=== PATIENT | male | born 1970 | race Caucasian/White ===

== ENCOUNTER 2025-08-01 10:29 | Inpatient (IN) | payer SELFPAY ==
[~2025-08-01] VITALS: Ht 175.3 cm; Wt 73.8 kg
--- NOTE | 2025-08-01 10:36 | ELECTROCARDIOGRAPH REPORT ---
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 Linden Marques Measurements Intervals [place] Rate: 142 P: 89 MS: 147 QRS: 101 QRSD: 87 T: -51 QT: 284 QTc: 437 Interpretive Statements Sinus tachycardia Ventricular premature complex Right axis deviation Borderline repolarization abnormality Electronically Signed On 08-03-2025 21:44:[address] Linden Marques Please click the below link to view image of tracing.
--- NOTE | 2025-08-01 10:55 | RADIOLOGY REPORT ---
CHEST RADIOGRAPH Indication: CP Technique: Single frontal view of the chest was obtained COMPARISON: None FINDINGS: Lines and Tubes: None Lungs: Clear Pleura: No effusion. No pneumothorax. Cardiomediastinal contours: Unremarkable Bones: Unremarkable IMPRESSION: No acute disease.
[2025-08-01 11:08] LABS: MEAN PLATELET VOLUME 8.8 FL (7.4-10.4)
--- NOTE | 2025-08-01 11:16 | Physician Documentation ---
Addendum CHIEF COMPLAINT/HPI: The patient is a 54-year-old male with no significant past medical history who arrives here with shortness of breath on exertion and tachycardia. On Thursday, four days ago, he developed chills, nausea, vomiting, diarrhea and aches and pains. He reports that he has very little to eat since then. Thursday some of his symptoms had improved but he had a severe headache. Thursday he felt like he was beginning to get better. Beginning yesterday he developed shortness of breath with even mild exertion. REVIEW OF SYSTEMS: Constitutional: Denies chills, fatigue, fever, weight gain or weight loss. HEENT: Denies hearing loss, sinus pressure or visual changes. Respiratory: Shortness of breath with the exertion Cardiovascular: Denies chest pain, pain while walking (claudication), edema. Patient has palpitations. Gastrointestinal: Denies abdominal pain, blood in stool, constipation, diarrhea, heartburn, loss of appetite, nausea or vomiting. Genitourinary: Denies painful urination (dysuria), excessive amount of urine (polyuria) or urinary frequency. Metabolic/Endocrine: Denies cold intolerance, heat intolerance, excessive thirst (polydipsia) or excessive hunger (polyphagia). Neurological: Denies dizziness, extremity numbness, extremity weakness, headaches, seizures or tremors. Psychiatric: Denies anxiety or depression. Integumentary: Denies breast discharge, breast lump, hives, mole change(s), rash or skin lesion. Musculoskeletal: Denies back pain, joint pain, joint swelling or neck pain. Hematologic: Denies easily bleeding, easily bruises, lymphedema or issues with blood clots. Immunologic: Denies food allergies or seasonal allergies. PHYSICAL EXAMINATION: Vitals and nursing note reviewed. Constitutional: General: Patient is awake, alert, oriented x 4 in no acute distress and well appearing. Speech is clear and lucid. Appearance: Normal appearance. Patient is not ill-appearing, toxic-appearing or diaphoretic. HENT: Head: Normocephalic and atraumatic. Mouth/Throat: Mouth: Mucous membranes are moist. Pharynx: Oropharynx is clear. Eyes: General: No scleral icterus. Extraocular Movements: Extraocular movements intact. Pupils: Pupils are equal, round, and reactive to light. Neck: Supple, no Kernig or Brudzinski sign. Cardiovascular: Rate and Rhythm: Tachycardic. Heart sounds: No murmur heard. Pulmonary: Effort: No respiratory distress. Breath sounds: No wheezing, rhonchi or rales. Abdominal: General: There is no distension. Palpations: There is no fluid wave, hepatomegaly or mass. Tenderness: There is no abdominal tenderness. There is no guarding. Musculoskeletal: General: No swelling or deformity. Skin: Coloration: Skin is not jaundiced. Findings: No erythema or rash. Neurological: Mental Status: Patient is alert. MEDICAL DECISION MAKING: This 54-year-old male presented with dyspnea on exertion, tachycardia after onset of viral syndrome Thursday, four days ago. He is COVID positive. He is dehydrated and hypokalemic. He has LUCIAN. I am hydrating him and will get him admitted. Departure Disposition: ADMITTED INPATIENT Admitted to Inpatient Unit: to hospitalist Admission Level of Care: Neuro with Tele Impression: Primary Impression: COVID Additional Impressions: Dyspnea on exertion Acute kidney injury Hypokalemia Condition: Fair LUTHER DUBON MD Aug 01, 2025 11:16
[2025-08-01 11:31] LABS: CREATININE 1.24 MG/DL (0.60-1.10); PRO BRAIN NATRIURETIC PEPTIDE 35 PG/ML (0-125); TOTAL CARBON DIOXIDE 18.7 MMOL/L (24-32); eCRCL 67 ML/MIN; eGFR 60 ML/MIN
[2025-08-01 11:55] LABS: ETHANOL < 10 MG/DL (<10)
[2025-08-01 12:06] LABS: RED CELL DISTRIBUTION WIDTH 13.8 % (11.5-14.5)
[2025-08-01] MEDS: potassium Cl 20 mEq SR tablet PO STA (12:34)
[2025-08-01] MEDS: normal saline 1000ml 1,000 ML IV ONE (12:35)
[2025-08-01] MEDS: potassium CL 10mEq/100ml bag 100 ML IV SCH (12:37)
[2025-08-01] MEDS: magnesium sulf-water 2g/50mL 50 ML IV ONE (12:39)
[2025-08-01 12:49] LABS: LEUKOCYTE ESTERASE ,URINE NEGATIVE (Neg); NITRITES, URINE NEGATIVE (Neg); OCCULT BLOOD,URINE NEGATIVE (Neg)
[2025-08-01] MEDS ORDERED: potassium Cl 40MEQ/1/2NS 520ml 520 ML IV PRN (12:50)
[2025-08-01] MEDS ORDERED: magnesium sulf-water 2g/50mL 50 ML IV PRN (12:50)
[2025-08-01] MEDS ORDERED: magnesium hydroxide 30ml (MOM) UD suspension PO PRN (12:50)
[2025-08-01] MEDS ORDERED: HYDROcodone/acetaminophen 10/325mg tab PO PRN (12:50)
[2025-08-01] MEDS ORDERED: ondansetron/PF 4mg/2ml inj IV PRN (12:50)
[2025-08-01] MEDS ORDERED: potassium Cl 20 mEq SR tablet PO PRN ×2 (12:50)
[2025-08-01] MEDS ORDERED: HYDROcodone/acetaminophen 5mg/325mg tablet PO PRN (12:50)
[2025-08-01] MEDS ORDERED: magnesium sulf-water 4G/100mL 100 ML IV PRN (12:50)
[2025-08-01] MEDS ORDERED: dexamethasone inj 6 MG in dextrose 5%-water 50ml 50 ML IV SCH (12:56)
[2025-08-01 12:57] LABS: UA COLLECTION TYPE NON-SPECIFIED
[2025-08-01 13:14] LABS: URINE AMPHETAMINE SCREEN NEGATIVE (Neg); URINE BARBITUATE SCREEN NEGATIVE (Neg); URINE BENZODIAZEPINES SCREEN NEGATIVE (Neg); URINE CANNABINOID SCREEN POSITIVE (Neg); URINE COCAINE SCREEN NEGATIVE (Neg); URINE METHADONE SCREEN NEGATIVE (Neg); URINE OPIATE SCREEN NEGATIVE (Neg); URINE PHENCYCLIDINE SCREEN NEGATIVE (Neg)
[2025-08-01 13:15] LABS: LYMPHOCYTES % (MANUAL) 26.0 % (21-51); METAMYLEOCYTES% (MANUAL) 1.0 % (0-0); MONOCYTES % (MANUAL) 16.0 % (2-12); NEUTROPHILS % (MANUAL) 57.0 % (42-75)
[2025-08-01 13:16] LABS: PLATELET ESTIMATE NORMAL
[2025-08-01] MEDS ORDERED: dexamethasone inj 6 MG in normal saline 50ml IV soln 50 ML IV SCH (13:26)
[2025-08-01] MEDS: sodium bicarbonate (8.4%) inj. 100 MEQ in dextrose 5%-water 1,000 ML IV SCH (13:30)
[2025-08-01] MEDS: dexamethasone inj 6 MG in normal saline 50ml IV soln 50 ML IV SCH (13:57)
[2025-08-01 15:48] VITALS: BP 135/88; PULSE 87; RESP 18; TEMP 99.1; O2SAT 99
[2025-08-01 16:05] VITALS: PULSE 68; RESP 16; O2SAT 99
--- NOTE | 2025-08-01 16:17 | HISTORY AND PHYSICAL ---
History & Physical Providers to CC ~ History of Present Illness Reason for Admit\Complaint: Shortness of the breath and significan Sinus tachycardia with activity History of Present Illness This is a 54-year-old male who four days ago noticed he had via viral-like symptoms including chills, nausea, vomiting, diarrhea and body aches. The nausea and vomiting resolved after one day however the patient has a persistent headache and body aches the following day two days ago he felt better however the patient developed shortness of breath x1 day. On arrival to the ED the patient is heart rate went up into in the 120s with activity and the patient became tachypneic and short of breath the patient is COVID positive. Allergies: Coded Allergies: No Known Allergies (Unverified , 07/03/11) Home Medications Home Medications Active No Active Prescriptions or Reported Medications Past Medical History Past Medical History No chronic health conditions Past Surgical History Surgical History Comment Appendectomy Family History Family History: Patient reports no known family medical history. Past Social History Social History Comment Chews tobacco, has been sober for a years, smokes marijuana. Full code status ROS ROS Except for positives in the HPI the rest of the 14 point review systems is negative Exam Vitals: Vital Signs Date Time Temp Pulse Resp B/P (MAP) Pulse Ox O2 Delivery O2 Flow Rate FiO2 08/01/25 15:48 99.1 87 18 135/88 (104) 99 Room Air 08/01/25 14:42 0 General: Gen. No acute distress alert and oriented 4 Lungs clear to ascultation bilaterally, no wheezes rales or rhonchi appreciated Heart normal sinus rhythm no murmurs rubs or clicks noted Abdomen soft nontender bowel sounds are normoactive Lower extremities no clubbing cyanosis, nor edema appreciated bilaterally Diagnostic Data Last Recorded Lab Results: 08/01/25 1052 08/01/25 1052 Diagnostic Data: Laboratory Tests Test 08/01/25 10:52 D-Dimer 0.30 MG/L FEU (0-0.50) D-Dimer Comment Advance Care Planning Advanced Care plannin - 30 Minutes Problems: (1) COVID Status: Acute Additional Plan # COVID with the associated shortness of breath and sinus tachycardia with activity Daily CRP and D-dimer Daily IV dexamethasone # hypokalemia On potassium replacement protocol # metabolic acidosis Bicarb drip # kidney disease Eval for chronic kidney disease versus LUCIAN Daily basic metabolic panel # DVT prophylaxis SCDs SQ Lovenox I spent a total of 18 minutes on reviewing various resuscitative measures/ ACP with the patient at the time of admission. The patient has decided on full code status Date of Service: Aug 01, 2025 Billing Provider: LENNY SOLIMAN DO Common Visit Codes: [id number] INP/OBS CARE (HIGH) Secondary Visit Codes: [id number] CARE PLAN 30 MINUTES LENNY SOLIMAN DO Aug 01, 2025 16:17
[2025-08-01 16:21] VITALS: RESP 18; O2SAT 99
[2025-08-01 18:00] VITALS: BP 142/85; PULSE 84; RESP 15; TEMP 98.1; O2SAT 96
[2025-08-01] MEDS: K and/or MAG REPLACEMENT MC SCH (20:00)
[2025-08-01 20:30] VITALS: RESP 16
[2025-08-01] MEDS: docusate sod 100mg capsule PO SCH (20:53)
[2025-08-01] MEDS: mag hydrox/Alum hydrox/simeth 30ml oral suspension PO PRN (20:54)
[2025-08-01] MEDS: enoxaparin 40mg/0.4ml syringe SQ SCH (20:54)
[2025-08-01 22:00] VITALS: BP 113/84; PULSE 80; RESP 18; TEMP 98.2; O2SAT 98
[2025-08-02 05:04] LABS: MEAN PLATELET VOLUME 9.0 FL (7.4-10.4); RED CELL DISTRIBUTION WIDTH 13.6 % (11.5-14.5)
[2025-08-02 05:14] LABS: CREATININE 0.97 MG/DL (0.60-1.10); TOTAL CARBON DIOXIDE 28.0 MMOL/L (24-32); eCRCL 85 ML/MIN; eGFR 80 ML/MIN
[2025-08-02 07:08] VITALS: BP 111/76; PULSE 71; RESP 13; TEMP 98; O2SAT 97
[2025-08-02 07:49] VITALS: RESP 14; O2SAT 97
[2025-08-02 10:26] VITALS: BP 112/80; PULSE 73; RESP 18; TEMP 98; O2SAT 99
--- NOTE | 2025-08-02 11:19 | DISCHARGE SUMMARY ---
Discharge Summary Providers to CC ~ Discharge Summary Admission Diagnosis: COVID 19 Hospital Course DATE OF ADMISSION: 08/01/2025 DATE OF DISCHARGE: 08/02/2025 Discharge Diagnosis\Comment: COVID-19 infection Dehydration Operations\Procedures: None Consultants: None Complications: None Condition on DC: Stable Medication Profile: No Active Prescriptions or Reported Meds Discharge Summary: Reason for admission: 54 years old male started having vital flu-like symptoms including chills, nausea, vomiting, diarrhea and body aches. Nausea and vomiting resolved after one day however patient continued to have headaches and body aches and developed shortness of breaths. Patient stated he could barely walk 15 ft without getting short of breath. Patient was noted to be tachycardic in the 120s and presented to the ER. # COVID 19 infection: Patient is not requiring any oxygen and reports significant improvement after hydration # dehydration: Suggested by hemoconcentration and elevated creatinine. Patient came in with a hemoglobin of 19.3 which is now down to 16.4 after IV hydration #LUCIAN: Resolved. Patient presented with a creatinine 1.24 which is now down to 0.97 after hydration # Hypokalemia: Replaced per protocol Discharge exam: Examined the patient on the day of discharge. Awake alert cooperative in no acute distress. Patient reports marked improvement HEENT normocephalic atraumatic extraocular movements are intact Neck supple, no JVD Chest: Clear to auscultation, no wheezes crackles rhonchi Heart: Regular rate rhythm, no murmur or gallop rub Abdomen is soft nontender no organomegaly Extremities no cyanosis clubbing or edema Neuro exam nonfocal Disposition: Home. *Problems/Diagnosis: (1) COVID Status: Acute Total Time Spent on D/C: Up to 30 Minutes Date of Service: Aug 02, 2025 Billing Provider: GILA KLEIN MD Common Visit Codes: 87061-DKF/OBS DISCH DAY <30MIN GILA KLEIN MD Aug 02, 2025 11:18
== END 2025-08-02 11:20 | disposition home or self-care (01) | DRG 178 ==
LOC: ER 10:29 → ED HOLD 12:52 → SUR 3N 15:29
PROVIDERS: ADMIT Family Medicine; ATTEND Family Medicine
DX: U07.1 COVID-19 (principal); E87.20 Acidosis, unspecified; N17.9 Acute kidney failure, unspecified; E86.0 Dehydration; E87.6 Hypokalemia; Z72.0 Tobacco use
CPT/HCPCS: 36415; 71045; 80048; 80053; 80305; 80320; 81003; 83605; 83735; 83880; 84145; 84484; 85007; 85025; 85379; 86140; 87081; 87811; 93005; 94760; 96365; 96367; 96372; 99285; G0378; J1100; J1650; J3480; J3490; J7030; J7070

== ENCOUNTER 2025-08-06 08:42 | Inpatient (IN) | payer SELFPAY ==
[~2025-08-06] VITALS: Ht 172.7 cm; Wt 78.4 kg
--- NOTE | 2025-08-06 09:06 | Physician Documentation ---
History of Present Illness ~ Chief Complaint: Rapid Heartbeat Stated Complaint: RAPID HEART RATE Time Seen by MD: 08:59 HPI 54-year-old male, presenting with palpitations He tells me that he recently had COVID-19, was admitted to the hospital and recently discharged. He tells me he was feeling better yesterday until around 5:00 p.m. when he suddenly developed a sensation of a rapid heart rate and p alpitations. He tells me that this has continued all night and he had a hard time sleeping. He states his heart rate was very fast. He reports feeling lightheaded and slightly short of breath. He denies any worsening COVID symptoms. No vomiting or diarrhea. He has been eating and drinking normally. He does not take any heart related medications. No syncope. No other related symptoms or concerns Medication Reconciliation Allergies: Coded Allergies: No Known Allergies (Unverified , 08/06/25) No Active Prescriptions or Reported Meds Past Medical History Past Surgical History: appendectomy Patient History: Patient reports no known family medical history. Alcohol Use: Heavy Drug Use: none Lives with: Alone Lives In: Home Review of Systems Constitutional: Denies: fever Cardiovascular: Reports: lightheadedness, palpitations; Denies: chest pain Physical Exam Vital Signs: Temperature: 98.6, Heart Rate: 139, Respiratory Rate: 15, BP: 128/95, Pulse Oximetry: 99, Weight: 78.400 Oxygen Flow Rate: 0 Physical Exam General: This is a mildly anxious appearing middle-aged man, not in distress HEENT: Atraumatic, oropharynx appears moist Heart: Tachycardic, appears regular, variable heart rate 100-120 Lungs: Clear breath sounds bilateral, normal work of breathing, normal oxygen saturation on room air. Occasional dry cough Abdomen: Soft, nondistended, nontender all quadrants Extremities: Warm and well-perfused, no edema Neuro: Alert and oriented Psychiatric: Appears mildly anxious about his condition, but is cooperative with exam Progress Results/Orders Results/Orders Orders - BENI ELIAS MD Chest,Single View (08/06/25 08:58) Monitor (08/06/25 08:58) Saline Lock (08/06/25 08:58) Oxygen (08/06/25 08:58) TSH (08/06/25 13:59) D-Dimer (08/06/25 13:59) Page Hospitalist (08/06/25 14:28) Completed Orders - BENI ELIAS MD Chest,Single View (08/06/25 08:58) Cbc/Diff (08/06/25 08:58) BMP (08/06/25 08:58) PBNP (08/06/25 08:58) Electrocardiogram (08/06/25 08:58) Hs Troponin I W Calculations (08/06/25 10:58) Hs Troponin I W Calculations (08/06/25 11:58) Hs Troponin I W Calculations (08/06/25 09:34) Normal Saline 1000ml (0.9% Sodium Chlori (08/06/25 09:40) Potassium Cl Sr Tablet (K-Dur Tablet) (08/06/25 10:02) Lorazepam Tablet (Ativan Tablet) (08/06/25 10:35) Normal Saline 1000ml (0.9% Sodium Chlori (08/06/25 10:35) MG (08/06/25 09:13) Medications Received in ER Medications (Trade) Dose Ordered Sig/Fariba Route PRN Reason Start Time Stop Time Status Last Admin Dose Admin Sodium Chloride 1,000 ml @ 1,000 mls/hr ONCE ONCE IV 08/06/25 09:40 08/06/25 10:39 DC 08/06/25 09:45 1,000 MLS/HR (K-DUR tablet) 40 meq ONCE STAT PO 08/06/25 10:02 08/06/25 10:04 DC 08/06/25 10:23 40 MEQ (Ativan tablet) 1 mg ONCE ONCE PO 08/06/25 10:35 08/06/25 10:36 DC 08/06/25 10:41 1 MG Sodium Chloride 1,000 ml @ 1,000 mls/hr ONCE ONCE IV 08/06/25 10:35 08/06/25 11:34 DC 08/06/25 10:41 1,000 MLS/HR Vital Signs 08/06/25 08/06/25 08/06/25 08/06/25 08:51 09:20 09:23 10:03 Temp 98.6 Pulse 139 102 88 Resp 15 18 16 10 B/P (MAP) 128/95 129/97 (108) 130/87 (101) Pulse Ox 99 99 98 O2 Flow Rate 0 0 0 08/06/25 08/06/25 08/06/25 08/06/25 10:26 10:41 11:00 13:59 Pulse 88 89 83 92 101 115 Resp 16 19 14 B/P (MAP) 136/88 130/85 (100) 126/85 (99) 125/86 114/90 Pulse Ox 97 97 O2 Flow Rate 0 Laboratory Tests Test 08/06/25 09:13 08/06/25 10:40 08/06/25 11:58 White Blood Count 12.3 H Red Blood Count 5.94 Hemoglobin 17.4 Hematocrit 49.9 Mean Corpuscular Volume 84.1 Mean Corpuscular Hemoglobin 29.3 Mean Corpuscular Hemoglobin Concent 34.9 Red Cell Distribution Width 13.2 Platelet Count 297 Mean Platelet Volume 8.8 Neutrophils (%) (Auto) 77.2 H Lymphocytes (%) (Auto) 15.2 L Monocytes (%) (Auto) 6.5 Eosinophils (%) (Auto) 0.6 Basophils (%) (Auto) 0.5 Neutrophils # (Auto) 9.5 H Lymphocytes # (Auto) 1.9 Monocytes # (Auto) 0.8 Eosinophils # (Auto) 0.1 Basophils # (Auto) 0.1 CBC Comment Sodium Level 136 Potassium Level 3.1 L Chloride Level 101 Carbon Dioxide Level 22.6 L Anion Gap 12 Blood Urea Nitrogen 11 Creatinine 0.99 Estimated GFR/1.73 m2 78 BUN/Creatinine Ratio 11.1 Glucose Level 142 H Calcium Level 9.2 Magnesium Level 2.1 Troponin I High Sensitivity 5 5 5 Pro-B-Type Natriuretic Peptide 41 Albumin 4.1 Chemistry Comments Troponin I High Sens Percent Delta 0 Troponin I Hi Sens Absolute Change 0 EKG/XRAY/CT/US/VASC/MRI EKG : Additional Comment I personally interpreted the EKG and this shows: Tachycardic, rate 137 coconut QTC 452, appears to be sinus rhythm, no STEMI Repeat EKG: Sinus rhythm, rate 90, QTC 452 Chest X-Ray : Additional Comments I personally interpreted the x-ray, and it shows: No pulmonary edema, focal consolidation, or pneumothorax Consults/PCP Consults/PCP : Additional Comment Consult: I spoke to the internal medicine service, for admission in the hospital Medical Decision Making Additional info obtained from: old records Findings Reviewed previous admission for COVID-19. The patient did have tachycardia which appeared to resolve with treatment Differential Dx:Considerations: Include: atrial dysrhythmia, atrial fibrillation, PSVT, sinus tachycardia Differential Dx:Considerations: Include anxiety/panic attack, Include electrolyte disorder, Include hyperventilation, Include pulmonary embolus, Include renal failure Additional Information The patient presents with a rapid heart rate and associated symptoms. His EKG appears possibly sinus tachycardia, no cleared dysrhythmia. His workup shows no definite acute abnormality to explain the cause of this tachycardia except for mild hypokalemia, and he was given potassium. No evidence of ACS. Repeat EKG later at a slower heart rate also shows no significant acute changes. After 2 L of IV fluids, the patient continued to have symptomatic tachycardia. I had several shared decision-making conversations with the patient regarding the possibility of POTS, or other non dangerous cause of his symptoms. After this discussion, he did not feel comfortable returning home, and so he will be admitted for further workup including a cardiac echo. Departure Impression: Primary Impression: Tachycardia Additional Impression: Hypokalemia Referrals: NO PRIMARY CARE PROVIDER (PCP) Prescriptions No Active Prescriptions or Reported Meds Signature Scribe Signature: na Attestation: BENI Mooney MD Aug 06, 2025 09:06
--- NOTE | 2025-08-06 09:30 | RADIOLOGY REPORT ---
CLINICAL INFORMATION: Chest pain. TECHNIQUE: Single AP portable chest radiograph was obtained. COMPARISON: DI CHEST,SINGLE VIEW on DOS: 08/01/25 FINDINGS: Lungs: Clear. Cardiac: Heart size is within normal limits. Pulmonary vasculature: Unremarkable. Mediastinum/brielle: Unremarkable. Bones: No acute osseous abnormality identified. Other: No other significant findings. IMPRESSION: No evidence of acute disease in the chest.
[2025-08-06 09:31] LABS: MEAN PLATELET VOLUME 8.8 FL (7.4-10.4); RED CELL DISTRIBUTION WIDTH 13.2 % (11.5-14.5)
[2025-08-06] MEDS: normal saline 1000ml 1,000 ML IV ONE ×2 (09:45→10:41)
[2025-08-06 09:57] LABS: CREATININE 0.99 MG/DL (0.60-1.10); PRO BRAIN NATRIURETIC PEPTIDE 41 PG/ML (0-125); TOTAL CARBON DIOXIDE 22.6 MMOL/L (24-32); eCRCL 81 ML/MIN; eGFR 78 ML/MIN
[2025-08-06] MEDS: potassium Cl 20 mEq SR tablet PO STA (10:23)
--- NOTE | 2025-08-06 13:09 | ELECTROCARDIOGRAPH REPORT ---
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 Linden Marques Measurements Intervals [place] Rate: 90 P: 27 MO: 158 QRS: 70 QRSD: 88 T: 10 QT: 369 QTc: 452 Interpretive Statements Sinus rhythm Electronically Signed On 08-06-2025 18:17:[address] Linden Marques Please click the below link to view image of tracing.
[2025-08-06] MEDS ORDERED: potassium Cl 20 mEq SR tablet PO PRN ×2 (15:10)
[2025-08-06] MEDS ORDERED: potassium Cl 40MEQ/1/2NS 520ml 520 ML IV PRN (15:10)
[2025-08-06] MEDS ORDERED: ondansetron/PF 4mg/2ml inj IV PRN (15:10)
[2025-08-06] MEDS ORDERED: magnesium hydroxide 30ml (MOM) UD suspension PO PRN (15:10)
[2025-08-06] MEDS ORDERED: magnesium sulf-water 4G/100mL 100 ML IV PRN (15:10)
[2025-08-06] MEDS ORDERED: mag hydrox/Alum hydrox/simeth 30ml oral suspension PO PRN (15:10)
[2025-08-06] MEDS ORDERED: magnesium sulf-water 2g/50mL 50 ML IV PRN (15:10)
[2025-08-06] MEDS ORDERED: magnesium Cl slow-release 64mg tablet PO PRN (15:10)
[2025-08-06] MEDS: PERFLUTREN PROTEIN-A MICROSPHR (Optison) 0.22 MG/ML 3ML VIAL IV ONE (15:13)
[2025-08-06 15:38] LABS: APTT 27 SECONDS (22-32); INR 1.0 INR
[2025-08-06] MEDS: normal saline 1000ml 1,000 ML IV SCH (15:49)
[2025-08-06 16:19] LABS: CREATININE 0.80 MG/DL (0.60-1.10); PHOSPHORUS 2.5 MG/DL (2.3-4.5); PRO BRAIN NATRIURETIC PEPTIDE 48 PG/ML (0-125); TOTAL CARBON DIOXIDE 23.5 MMOL/L (24-32); eCRCL 100 ML/MIN; eGFR > 90 ML/MIN
--- NOTE | 2025-08-06 18:06 | HISTORY AND PHYSICAL-Residence ---
History & Physical Providers to CC Resident Creating Document: CHRISTOPHER KWAN, RES ~ History of Present Illness Primary Medical Doctor: none Reason for Admit\Complaint: Palpitation History of Present Illness A 54 years old male who had COVID-19 infection recently discharged from [facility] admitted to the hospital with the concern of rapid heart rate. The patient states that yesterday around 5:00 p.m. in the evening patient smoke marijuana and ate 2 sugar candies, after that he developed a sensation of rapid heart rate and palpitations, that continued all the night and he hard time sleeping associated with mild lightheadedness. He denies shortness of breath, chest pain, dizziness, syncope, vomiting, diarrhea, abdominal pain. Allergies: Coded Allergies: No Known Allergies (Unverified , 08/06/25) Home Medications Home Medications Active No Active Prescriptions or Reported Medications Past Medical History Past Medical History COVID-19 infection Dehydration Past Surgical History Surgical History Comment Appendectomy Family History Family History: Patient reports no known family medical history. 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 Gastrointestinal:No Abdominal pain, vomiting,nausea and melena. Normal appetite. No constipation,diarrhea, hematemesis, Musculoskeletal: No swelling or edema of extremities. Integumentary: No change in skin, hair, nails. No swelling, bruising, abrasions Neurologic: No weakness,No headache, neck pain, numbness or tingling of the extremities, Psychiatric: No delusions, depression, loss of interest in normal activity or change in sleep pattern, hallucinations, suicidal ideations Endocrine: No fatigue, no weakness. polydipsia, polyuria, change in appetite, heat or cold intolerance, sweating, dry skin Hematological: No bleeding, petechiae, bruising Allergies: No asthma or urticaria Constitutional: Denies: fever Cardiovascular: Reports: lightheadedness, palpitations; Denies: chest pain Exam Vitals: Vital Signs Date Time Temp Pulse Resp B/P (MAP) Pulse Ox O2 Delivery O2 Flow Rate FiO2 08/06/25 15:56 84 18 131/92 (105) 97 0 08/06/25 08:51 98.6 General: Awake , alert and oriented to time,place, person, mildly anxious, not in distress HEENT: Atraumatic, normocephalic, PERRLA, EOMI, anicteric sclera ; pink conjunctiva, moist mucos membranes Neck: Trachea midline. Supple, normal range of motion, no JVD, no lymphadenopathy Chest and Respiratory: Equal breath sounds bilaterally, no tachypnea, wheezing, ronchi,rubs .Chest wall is symmetric and without deformity. Cardiac: S1, S2 heard, sinus tachycardia (80-115 ) and sinus rhythm, no murmurs heard. Abdomen: Soft, No tenderness, No guarding or rigidity, Flores's sign negative. normal bowel sounds x4 quadrant, no hepatosplenomegaly MSK: Range of motion of all extremities are normal. There is no joint pain or joint swelling or joint erythema. There is no muscle pain or tenderness or swelling. Extremities: warm, well-perfused, No cyanosis, clubbing, 2+ pulses felt Neurological: Speech is clear, alert, and oriented x 4. No sensory or motor deficits. Cranial nerves II-XII intact. Skin: Warm and dry Psychiatry: Affect and mood are normal Diagnostic Data Last Recorded Lab Results: 08/06/25 0913 08/06/25 1540 Diagnostic Data: Laboratory Tests Test 08/06/25 14:30 Prothrombin Time 10.4 SECONDS (9.0-12.0) INR International Normalized Ratio 1.0 INR Activated Partial Thromboplast Time 27 SECONDS (22-32) D-Dimer < 0.19 MG/L FEU (0-0.50) D-Dimer Comment Coagulation Comments Advance Care Planning Advanced Care plannin - 30 Minutes Additional Plan Postural orthostatic tachycardia syndrome Dehydration Patient heart rate increases (10-20 beats ) with standing Patient feels thirsty, denies chest discomfort Telemetry showed normal sinus rhythm with heart rate of 70-115 Continue telemetry monitoring echocardiogram ordered Started on IV normal saline at the rate of 70 mL/hour Adequate oral hydration Hypokalemia Potassium is 3.1 on Potassium replacement protocol Monitor BMP levels Substance use disorder Toxicology positive for cannabinoids Substance use navigator ordered Code status: Full code DVT prophylaxis : Heparin Nutrition: Regular Line/tube: PIV Disposition: Continue telemetry monitoring for next 24 hours. Resident attestation The above note has been reviewed and supervised by a senior resident PGY3 Patient was seen, examined and discussed with the attending physician Delfino Kwan MD Internal Medicine Resident, PGY 1 Date of Service: Aug 06, 2025 Billing Provider: ALANNA GEIGER MD Common Visit Codes: [id number] INP/OBS CARE (HIGH) Secondary Visit Codes: [id number] CARE PLAN 30 MINUTES CHRISTOPHER KWAN, RES Aug 06, 2025 18:05 ALANNA GEIGER MD Aug 07, 2025 20:54
[2025-08-06 19:29] LABS: LEUKOCYTE ESTERASE ,URINE NEGATIVE (Neg); NITRITES, URINE NEGATIVE (Neg); OCCULT BLOOD,URINE NEGATIVE (Neg)
[2025-08-06 19:34] LABS: UA COLLECTION TYPE NON-SPECIFIED
[2025-08-06] MEDS: heparin, porcine 5000 units/ml vial SQ SCH (20:00)
[2025-08-06] MEDS: docusate sod 100mg capsule PO SCH (20:00)
[2025-08-06] MEDS: K and/or MAG REPLACEMENT MC SCH (20:27)
[2025-08-06 22:00] VITALS: BP 116/80; PULSE 75; TEMP 97.6; O2SAT 97
[2025-08-07 01:51] VITALS: RESP 12; O2SAT 99
[2025-08-07 02:00] VITALS: BP 102/74; PULSE 80; TEMP 98.2; O2SAT 98
--- NOTE | 2025-08-07 05:28 | ELECTROCARDIOGRAPH REPORT ---
[facility] Test Date: 2025-08-06 Test Time: 08:47:43 Pat Name: BENI LOPEZ Department: EMERGENCY ROOM Room: [place] [address] [address] Gender: M Kennel Assistant: : 1970 Requested By: DEPARTMENT EMERGENCY Order Number: [id number] Reading MD: Dr. Linden Marques Measurements Intervals [place] Rate: 137 P: 59 HI: 127 QRS: 101 QRSD: 86 T: -52 QT: 299 QTc: 452 Interpretive Statements Age not entered, assumed to be 48 years old for purpose of ECG interpretation Sinus tachycardia Right axis deviation Nonspecific repol abnormality, diffuse leads Electronically Signed On 08-07-2025 5:36:[address] Linden Marques Please click the below link to view image of tracing.
[2025-08-07 06:00] VITALS: BP 104/69; PULSE 66; TEMP 97.3; O2SAT 99
[2025-08-07 07:50] LABS: MEAN PLATELET VOLUME 8.8 FL (7.4-10.4); RED CELL DISTRIBUTION WIDTH 13.1 % (11.5-14.5)
[2025-08-07 08:00] VITALS: RESP 15; O2SAT 99
[2025-08-07 08:39] LABS: CHOL/HDL RATIO 3.7 (0.00-4.99); CREATININE 0.73 MG/DL (0.60-1.10); LDL CHOLESTEROL 74 MG/DL (50-100); TOTAL CARBON DIOXIDE 22.7 MMOL/L (24-32); eCRCL 109 ML/MIN; eGFR > 90 ML/MIN
[2025-08-07 08:46] LABS: URINE AMPHETAMINE SCREEN NEGATIVE (Neg); URINE BARBITUATE SCREEN NEGATIVE (Neg); URINE BENZODIAZEPINES SCREEN NEGATIVE (Neg); URINE CANNABINOID SCREEN POSITIVE (Neg); URINE COCAINE SCREEN NEGATIVE (Neg); URINE METHADONE SCREEN NEGATIVE (Neg); URINE OPIATE SCREEN NEGATIVE (Neg); URINE PHENCYCLIDINE SCREEN NEGATIVE (Neg)
[2025-08-07 11:00] VITALS: BP 113/72; PULSE 74; TEMP 97; O2SAT 99
--- NOTE | 2025-08-07 16:44 | DISCHARGE SUMMARY-Residence ---
Discharge Summary Providers to CC Resident Creating Document: CHRISTOPHER CLEMONS JACKSON, RES ~ Discharge Summary Admission Diagnosis: PALPITATIONS Hospital Course DATE OF ADMISSION: 08/06/2025 DATE OF DISCHARGE: 08/07/2025 Discharge Diagnosis\Comment: Palpitations of unknown etiology Dehydration Mild hypokalemia Operations\Procedures: None Consultants: None Complications: None Condition on DC: Stable Discharge Summary: History of present illness: A 54 years old male who had COVID-19 infection recently discharged from [facility] admitted to the hospital with the concern of rapid heart rate. The patient states that yesterday around 5:00 p.m. in the evening patient smoke marijuana and ate 2 sugar candies, after that he developed a sensation of rapid heart rate and palpitations, that continued all the night and he hard time sleeping associated with mild lightheadedness. He denies shortness of breath, chest devorah n, dizziness, syncope, vomiting, diarrhea, abdominal pain. Course in the hospital: Patient was admitted with palpitations. EKG showed sinus rhythm, FL interval, QRS duration, P waves are normal with no ST-T changes. Echocardiogram was normal. Telemetry over 24hrs showed sinus rhythm with heart rate of 65. Patient denies any palpitations, chest discomfort, chest pain, shortness of breath in the hospital. Patient was stable at the time of discharge. Dehydration: Patient was treated with IV fluids and oral hydration. Hypokalemia, resolved: Initial CMP showed potassium of 3.1, placed on potassium replacement protocol The patient condition was stable at the time of discharge. Patient was advised to quit tobacco chewing and marijuana. Discharge instructions: Patient was advised to set up an appointment with PCP and the sap business analyst to get the event/ Holter monitor. Imaging studies performed during hospitalization: Chest x-ray: No evidence of acute disease in the chest. Echocardiogram: LEFT VENTRICLE Normal LV size and wall thickness. Overall systolic function is hyperdynamic. LVEF is 70-75%. RIGHT VENTRICLE RV is moderately dilated with normal function. ATRIA Left atrium is mildly dilated. AORTIC VALVE Trileaflet AV appears normal without stenosis. Trace insufficiency. MITRAL VALVE Mild MV annular calcification without stenosis. Trace regurgitation. TRICUSPID VALVE TV appears structurally normal with trace regurgitation. PULMONIC VALVE Normal PV without stenosis, physiologic insufficiency. GREAT VESSELS The aortic root is normal in size. PERICARDIUM Normal pericardium. No effusion. Vital Signs Date Time Temp Pulse Resp B/P (MAP) Pulse Ox O2 Delivery O2 Flow Rate FiO2 08/07/25 11:00 97.0 74 113/72 (86) 99 Room Air 08/07/25 08:00 15 0.0 08/07/25 01:51 21 Laboratory Tests Test 08/06/25 09:13 08/06/25 10:40 08/06/25 11:58 08/06/25 14:30 White Blood Count 12.3 X10'3 Red Blood Count 5.94 X10'6 Hemoglobin 17.4 g/dl Hematocrit 49.9 % Mean Corpuscular Volume 84.1 FL Mean Corpuscular Hemoglobin 29.3 PG Mean Corpuscular Hemoglobin Concent 34.9 g/dL Red Cell Distribution Width 13.2 % Platelet Count 297 X10'3 Mean Platelet Volume 8.8 FL Neutrophils (%) (Auto) 77.2 % Lymphocytes (%) (Auto) 15.2 % Monocytes (%) (Auto) 6.5 % Eosinophils (%) (Auto) 0.6 % Basophils (%) (Auto) 0.5 % Neutrophils # (Auto) 9.5 X10'3 Lymphocytes # (Auto) 1.9 X10'3 Monocytes # (Auto) 0.8 X10'3 Eosinophils # (Auto) 0.1 X10'3 Basophils # (Auto) 0.1 X10'3 CBC Comment Sodium Level 136 MMOL/L Potassium Level 3.1 MMOL/L Chloride Level 101 MMOL/L Carbon Dioxide Level 22.6 MMOL/L Anion Gap 12 Blood Urea Nitrogen 11 MG/DL Creatinine 0.99 MG/DL Estimated GFR/1.73 m2 78 ML/MIN BUN/Creatinine Ratio 11.1 Glucose Level 142 MG/DL Hemoglobin A1c 5.3 % Calcium Level 9.2 MG/DL Magnesium Level 2.1 MG/DL Troponin I High Sensitivity 5 ng/L 5 ng/L 5 ng/L Pro-B-Type Natriuretic Peptide 41 PG/ML Albumin 4.1 G/DL Chemistry Comments Troponin I High Sens Percent Delta 0 % Troponin I Hi Sens Absolute Change 0 ng/L Prothrombin Time 10.4 SECONDS INR International Normalized Ratio 1.0 INR Activated Partial Thromboplast Time 27 SECONDS D-Dimer < 0.19 MG/L FEU D-Dimer Comment Coagulation Comments Thyroid Stimulating Hormone (TSH) 1.48 ulU/ml Test 08/06/25 14:37 08/06/25 15:40 08/06/25 19:06 08/06/25 19:08 SARS-CoV-2 Antigen (Rapid) Negative Sodium Level 137 MMOL/L Potassium Level 3.6 MMOL/L Chloride Level 108 MMOL/L Carbon Dioxide Level 23.5 MMOL/L Anion Gap 6 Blood Urea Nitrogen 8 MG/DL Creatinine 0.80 MG/DL Estimated GFR/1.73 m2 > 90 ML/MIN BUN/Creatinine Ratio 10.0 Glucose Level 98 MG/DL Calcium Level 8.3 MG/DL Phosphorus Level 2.5 MG/DL Magnesium Level 2.1 MG/DL Total Bilirubin 1.3 MG/DL Aspartate Amino Transf (AST/SGOT) 21 U/L Alanine Aminotransferase (ALT/SGPT) 35 U/L Alkaline Phosphatase 61 IU/L Pro-B-Type Natriuretic Peptide 48 PG/ML Total Protein 6.9 G/DL Albumin 3.3 G/DL Globulin 3.6 G/DL Albumin/Globulin Ratio 0.9 Chemistry Comments Urine Specimen Description Non-specified Urine Color Yellow Urine Clarity Clear Urine pH 6.0 Urine Specific [place] 1.020 Urine Protein Negative mg/dl Urine Glucose (UA) Negative mg/dl Urine Ketones 15 mg/dl Urine Occult Blood Negative Urine Nitrite Negative Urine Bilirubin Negative Urine Urobilinogen 1.0 E.U/dL Urine Leukocyte Esterase Negative Urine Culture Indicated Not ind Volume Urine Centrifuged 10 ml Urine Comment Lactic Acid Level 0.8 MMOL/L Procalcitonin < 0.05 NG/ML Test 08/07/25 06:53 08/07/25 08:06 White Blood Count 6.9 X10'3 Red Blood Count 5.04 X10'6 Hemoglobin 14.9 g/dl Hematocrit 42.9 % Mean Corpuscular Volume 85.2 FL Mean Corpuscular Hemoglobin 29.5 PG Mean Corpuscular Hemoglobin Concent 34.7 g/dL Red Cell Distribution Width 13.1 % Platelet Count 250 X10'3 Mean Platelet Volume 8.8 FL Neutrophils (%) (Auto) 51.5 % Lymphocytes (%) (Auto) 35.6 % Monocytes (%) (Auto) 10.5 % Eosinophils (%) (Auto) 1.9 % Basophils (%) (Auto) 0.5 % Neutrophils # (Auto) 3.6 X10'3 Lymphocytes # (Auto) 2.5 X10'3 Monocytes # (Auto) 0.7 X10'3 Eosinophils # (Auto) 0.1 X10'3 Basophils # (Auto) 0.0 X10'3 CBC Comment Sodium Level 138 MMOL/L Potassium Level 3.7 MMOL/L Chloride Level 106 MMOL/L Carbon Dioxide Level 22.7 MMOL/L Anion Gap 9 Blood Urea Nitrogen 12 MG/DL Creatinine 0.73 MG/DL Estimated GFR/1.73 m2 > 90 ML/MIN BUN/Creatinine Ratio 16.4 Glucose Level 83 MG/DL Calcium Level 8.3 MG/DL Albumin 3.1 G/DL Triglycerides Level 89 MG/DL Cholesterol Level 115 MG/DL LDL Cholesterol 74 MG/DL HDL Cholesterol 31 MG/DL Cholesterol/HDL Ratio 3.7 Chemistry Comments Urine Opiates Screen Negative Urine Methadone Screen Negative Urine Fentanyl Screen Negative Urine Barbiturates Screen Negative Urine Phencyclidine Screen Negative Urine Amphetamines Screen Negative Urine Benzodiazepines Screen Negative Urine Cocaine Screen Negative Urine Cannabinoids Screen Positive Drug Screen Comment Discharge physical exam: Awake , alert and oriented to time,place, person, not in distress HEENT: Atraumatic, normocephalic, PERRLA, EOMI, anicteric sclera ; pink conjunctiva, moist mucos membranes Neck: Trachea midline. Supple, normal range of motion, no JVD, no lymphadenopathy Chest and Respiratory: Equal breath sounds bilaterally, no tachypnea, wheezing, ronchi,rubs .Chest wall is symmetric and without deformity. Cardiac: S1, S2 heard, sinus tachycardia (80-115 ) and sinus rhythm, no murm urs heard. Abdomen: Soft, No tenderness, No guarding or rigidity, Flores's sign negative. normal bowel sounds x4 quadrant, no hepatosplenomegaly MSK: Range of motion of all extremities are normal. There is no joint pain or joint swelling or joint erythema. There is no muscle pain or tenderness or swelling. Extremities: warm, well-perfused, No cyanosis, clubbing, 2+ pulses felt Neurological: Speech is clear, alert, and oriented x 4. No sensory or motor deficits. Cranial nerves II-XII intact. Skin: Warm and dry Psychiatry: Affect and mood are normal *Problems/Diagnosis: (1) Paroxysmal atrial fibrillation (2) Dehydration (3) Hypokalemia Total Time Spent on D/C: Up to 30 Minutes Date of Service: Aug 07, 2025 Billing Provider: ALANNA GEIGER MD, SUNIL KUMAR, RES Aug 07, 2025 16:44
--- NOTE | 2025-08-07 18:45 | CARDIOLOGY REPORT ---
APPROVED REPORT EXAM: Comprehensive 2D, Doppler, and color-flow Echocardiogram. Patient Location: [address] Heart Rate: 60's bpm Rhythm: SINUS Indications ARRHYTHMIA ELEVATED HEART RATE SHORTNESS OF BREATH Hatch Supervisor: NONE Previous echo: NONE 2D Dimensions RVDd 4.4 cm IVSd 0.9 (0.7-1.1cm) LVDd 4.9 cm PWd 0.9 (0.7-1.1cm) IVSs 1.4 (0.8-1.2cm) LVDs 2.6 (2.5-4.0cm) PWs 1.4 (0.8-1.2cm) LVOT Diameter 2.17 (1.8-2.4cm) LVEF(%) 78.0 (>50%) FS (%) 46.7 % SV 86.4 ml CO 5.7 L/min M-Mode Dimensions Left Atrium(MM) 4.16 (2.5-4.0cm) Aortic Root 2.96 (2.2-3.7cm) Aortic Cusp Exc 1.83 (1.5-2.0cm) MV EPSS 0.6 (<0.5cm) Aortic Valve AoV Peak Meño. 111.0 cm/s AoV VTI 22.2 cm AO Peak GR. 4.9 mmHg AO Mean GR. 2 mmHg LVOT VTI 14.81 cm LVOT Peak Meño. 77.9 cm/s DAKOTA(VTI)/BSA 2.48 cm2/m2 [place] (VTI) 2.48 cm2 AV DI 0.67 % Mitral Valve MV E Velocity 58.8 cm/s MV Peak Gr. 2 mmHg MV DECEL TIME 268 ms MV A Velocity 55.2 cm/s MV PHT 56 ms E/A Ratio 1.1 MVA (PHT) 3.93 cm2 MV VMax 77.9 cm/s TDI Lateral E' P. V 7.62 cm/s E/Lateral E' 7.7 Tricuspid Valve TR P. Velocity 162 cm/s RAP ESTIMATE 10 mmHg TR Peak Gr. 11 mmHg RVSP 21 mmHg Pulmonary Vein S1 Velocity 55.7 cm/s D2 Velocity 38.3 cm/s PVa Velocity 29.6 cm/s PVa Duration 136 msec LEFT VENTRICLE Normal LV size and wall thickness. Overall systolic function is hyperdynamic. LVEF is 70-75%. RIGHT VENTRICLE RV is moderately dilated with normal function. ATRIA Left atrium is mildly dilated. AORTIC VALVE Trileaflet AV appears normal without stenosis. Trace insufficiency. MITRAL VALVE Mild MV annular calcification without stenosis. Trace regurgitation. TRICUSPID VALVE TV appears structurally normal with trace regurgitation. PULMONIC VALVE Normal PV without stenosis, physiologic insufficiency. GREAT VESSELS The aortic root is normal in size. PERICARDIUM Normal pericardium. No effusion. Conclusion Normal LV size and wall thickness. Overall systolic function is hyperdynamic. LVEF is 70-75%. RV is moderately dilated with normal function. Left atrium is mildly dilated. Trileaflet AV appears normal without stenosis. Trace insufficiency. Mild MV annular calcification without stenosis. Trace regurgitation. TV appears structurally normal with trace regurgitation. Normal pericardium. No effusion.
== END 2025-08-07 11:45 | disposition home or self-care (01) | DRG 641 ==
LOC: ER 08:42 → ED HOLD 14:50 → PCU 3S 21:47
PROVIDERS: ADMIT Internal Medicine; ATTEND Internal Medicine
DX: E86.0 Dehydration (principal); Z20.822 Contact with and (suspected) exposure to COVID-19; I48.0 Paroxysmal atrial fibrillation; E87.6 Hypokalemia; G90.A Postural orthostatic tachycardia syndrome [POTS]; Z90.49 Acquired absence of other specified parts of digestive tract
CPT/HCPCS: 36415; 71045; 80048; 80053; 80061; 80305; 81003; 83036; 83605; 83735; 83880; 84100; 84145; 84443; 84484; 85025; 85379; 85610; 85730; 87081; 87811; 93005; 93306; 96360; 99285; G0378; J7030